=== PATIENT | male | born 1935 | race Caucasian/White ===

== ENCOUNTER 2018-12-22 11:53 | Emergency (ER) | payer MEDICARE, OTHER ==
[~2018-12-22] VITALS: Ht 177.8 cm; Wt 81.0 kg
[~2018-12-22 11:53] MED LIST: AMIO200T40 PO; ASPI-41 PO; ATOR10TA PO; DOCU100C40 PO; HUM7525 SQ; HYDR-3972 PO; METO25TA6 PO; SITA1TAB6 PO
[2018-12-22] MEDS ORDERED: HYDROcodone/acetaminophen 5mg/325mg tablet PO ONE (12:45)
[2018-12-22 12:51] VITALS: BP 132/76
== END 2018-12-22 13:13 | disposition home or self-care (01) ==
LOC: ER 11:53
DX: M13.862 Other specified arthritis, left knee (principal); M25.462 Effusion, left knee; M25.562 Pain in left knee; E11.9 Type 2 diabetes mellitus without complications; Z79.4 Long term (current) use of insulin; Z79.82 Long term (current) use of aspirin; Z79.899 Other long term (current) drug therapy
CPT/HCPCS: 73564; 99284

== ENCOUNTER 2018-12-24 12:05 | Emergency (ER) | payer MEDICARE, OTHER ==
[~2018-12-24] VITALS: Ht 177.8 cm; Wt 81.0 kg
[2018-12-24 13:17] VITALS: BP 144/88
== END 2018-12-24 13:19 | disposition home or self-care (01) ==
LOC: ER 12:06
DX: M25.562 Pain in left knee (principal); E11.9 Type 2 diabetes mellitus without complications; Z79.82 Long term (current) use of aspirin; Z79.4 Long term (current) use of insulin; Z79.899 Other long term (current) drug therapy
CPT/HCPCS: 99284

== ENCOUNTER 2021-12-28 13:22 | Inpatient (IN) | payer MEDICARE ==
[~2021-12-28] VITALS: Ht 172.7 cm; Wt 95.1 kg
[~2021-12-28 13:22] MED LIST changes: -AMIO200T40 PO; +APIX5TAB3 PO; -ASPI-41 PO; -ATOR10TA PO; +ATOR40TA72 PO; -DOCU100C40 PO; -HYDR-3972 PO; -METO25TA6 PO; -SITA1TAB6 PO
[2021-12-28 14:13] LABS: BASOPHILS % (AUTO) 0.2 % (0-1); EOSINOPHILS % (AUTO) 0.4 % (0-6); HEMATOCRIT 45.4 % (42.0-52.0); HEMOGLOBIN 15.2 g/dl (14.0-17.9); LYMPHOCYTES # (AUTO) 1.2 X10'3 (1.1-4.8); LYMPHOCYTES % (AUTO) 16.2 % (21-51); MEAN CORPUSCULAR HEMOGLOBIN 27.9 PG (27.0-31.0); MEAN CORPUSCULAR HGB CONC 33.4 g/dL (33.0-36.5); MEAN CORPUSCULAR VOLUME 83.5 FL (78-98); MEAN PLATELET VOLUME 7.8 FL (7.4-10.4); MONOCYTES # (AUTO) 0.8 X10'3 (0-0.9); MONOCYTES % (AUTO) 10.7 % (2-12); NEUTROPHILS # (AUTO) 5.2 X10'3 (1.8-7.7); NEUTROPHILS % (AUTO) 72.5 % (42-75); PLATELET COUNT 149 X10'3 (140-440); RED BLOOD COUNT 5.44 X10'6 (4.70-6.10); WHITE BLOOD COUNT 7.2 X10'3 (4.5-11.0)
[2021-12-28 14:28] LABS: ALANINE AMINOTRANSFERASE 92 U/L (12-78); ALBUMIN 2.8 G/DL (3.4-5.0); ALBUMIN/GLOBULIN RATIO 0.8 (1.1-1.5); ALKALINE PHOSPHATASE 49 IU/L (46-116); ANION GAP 9 (8-16); ASPARTATE AMINO TRANSFERASE 272 U/L (10-37); BILIRUBIN,TOTAL 0.6 MG/DL (0.1-1.0); BLOOD UREA NITROGEN 31 MG/DL (7-18); BUN/CREATININE RATIO 22.8 (5.4-32.0); CALCIUM 8.1 MG/DL (8.5-10.1); CHLORIDE 106 MMOL/L (99-107); CREATININE 1.36 MG/DL (0.60-1.10); GLUCOSE 64 MG/DL (70-104); POTASSIUM 3.8 MMOL/L (3.5-5.1); SODIUM 139 MMOL/L (135-145); TOTAL PROTEIN 6.5 G/DL (6.4-8.2); eGFR 50 ML/MIN
[2021-12-28] MEDS ORDERED: normal saline 1000ML IV soln IVB ONE ×2 (15:45→17:55)
[2021-12-28 15:56] LABS: CLARITY,URINE SLIGHTLY CLOUDY (Clear); COLOR,URINE YELLOW (Yellow); GLUCOSE, URINE NEGATIVE (Neg); KETONES,URINE NEGATIVE (Neg); LEUKOCYTE ESTERASE ,URINE NEGATIVE (Neg); NITRITES, URINE NEGATIVE (Neg); OCCULT BLOOD,URINE LARGE (Neg); PROTEIN,URINE 30 mg/dl (Neg); UROBILINOGEN,URINE 0.2 E.U/dL (0.2-1.0)
[2021-12-28 16:01] LABS: UA COLLECTION TYPE VOIDED
[2021-12-28 16:07] LABS: BACTERIA,URINE NONE SEEN /HPF (Neg); MUCUS STRANDS FEW /LPF (Neg); RBC,URINE 0-2 /HPF (0-2); SQUAMOUS EPITHELIAL CELL,UR NONE SEEN /LPF (FEW); WBC,URINE NONE SEEN /HPF (0-4)
[2021-12-28 16:08] LABS: FINE GRANULAR CAST 0-3 /LPF (NEGATIVE)
[2021-12-28 17:26] LABS: CREATINE KINASE 12498 U/L (39-308)
[2021-12-28] MEDS ORDERED: MESSAGE TO PHARMACY PO ONE (18:05)
[2021-12-28] MEDS ORDERED: POTASSIUM BICARB 20meq eff tab 20 MEQ TABLET.EFF PO PRN ×2 (18:05)
[2021-12-28] MEDS ORDERED: HYDROcodone/acetaminophen 10/325mg tab PO PRN (18:05)
[2021-12-28] MEDS ORDERED: ondansetron/PF 4mg/2ml inj IV PRN (18:05)
[2021-12-28] MEDS ORDERED: glucagon, human recombinant 1mg kit SUBCUT PRN (18:05)
[2021-12-28] MEDS ORDERED: HYDROcodone/acetaminophen 5mg/325mg tablet PO PRN (18:05)
[2021-12-28] MEDS ORDERED: DEXTROSE 15 GM of carb/4 tabs (each vial/BOTTLE has 4 tablets) PO PRN ×2 (18:05)
[2021-12-28] MEDS ORDERED: acetaminophen 650mg rectal suppository RC PRN (18:05)
[2021-12-28] MEDS ORDERED: magnesium Cl slow-release 64mg tablet PO PRN (18:05)
[2021-12-28] MEDS ORDERED: acetaminophen 325mg tablet PO PRN ×2 (18:05)
[2021-12-28] MEDS ORDERED: dextrose 50%-water 50ml dispensing syringe IV PRN ×2 (18:05)
[2021-12-28] MEDS ORDERED: magnesium 4gm in 100ml NS 100 ML IV PRN (18:05)
[2021-12-28] MEDS ORDERED: magnesium 2GM in 50ml NS 50 ML IV PRN (18:05)
[2021-12-28] MEDS ORDERED: magnesium hydroxide 30ml (MOM) UD suspension PO PRN (18:05)
[2021-12-28] MEDS ORDERED: ondansetron 4mg rapidly disintigrating tab PO PRN (18:05)
[2021-12-28] MEDS ORDERED: bisacodyl 10mg suppository rectal RC PRN (18:05)
[2021-12-28] MEDS ORDERED: potassium CL 10mEq/100ml bag 100 ML IV PRN (18:05)
[2021-12-28] MEDS ORDERED: mag hydrox/Alum hydrox/simeth 30ml oral suspension PO PRN (18:05)
--- NOTE | 2021-12-28 18:20 | NUR ---
Given a turkey sandwich and apple juice.
[2021-12-28] MEDS: K and/or MAG REPLACEMENT MC SCH (18:40)
[2021-12-28 18:42] LABS: POTASSIUM 3.7 MMOL/L (3.5-5.1)
[2021-12-28 18:49] LABS: HEMOGLOBIN A1C 7.9 % (4.5-6.2)
--- NOTE | 2021-12-28 19:00 | NUR ---
Upon reviewing lab results of patient during initial assessment, recieving nurse was unaware of blood sugar reading that was taken by reporting nurse. Patient just given dinner tray, encouraged to eat entirety of meal and drink both juices. Will retake blood sugar to evaluate effectiveness and follow up with hospitalist. Patient is asymptomatic and not exhibiting s/sx of hypoglycemia.
[2021-12-28] MEDS: insulin glargine (Lantus) pen - multi-dose SQ SCH (19:38)
[2021-12-28] MEDS: heparin, porcine 5000 units/ml vial SQ SCH (19:56)
[2021-12-28] MEDS: docusate sod 100mg capsule PO SCH (19:57)
[2021-12-28] MEDS: normal saline 1000ml 1,000 ML IV SCH (20:27)
[2021-12-28] MEDS ORDERED: temazepam 15mg capsule PO PRN (21:00)
--- NOTE | 2021-12-29 00:19 | NUR ---
Patient in room ED 11. I have received report from vance and had the opportunity to ask questions and assume patient care.
[2021-12-29 01:00] VITALS: BP 156/78
[2021-12-29] MEDS: normal saline 1000ml 1,000 ML IV SCH ×3 (02:32→19:12)
[2021-12-29 06:00] VITALS: BP 149/71
--- NOTE | 2021-12-29 06:36 | NUR ---
Patient in room PCU 3023. I have received report from Jelly HILLIARD and had the opportunity to ask questions and assume patient care.
--- NOTE | 2021-12-29 06:44 | NUR ---
Problems reprioritized. Patient report given, questions answered & plan of care reviewed with Linda HILLIARD.
[2021-12-29 06:51] LABS: BASOPHILS % (AUTO) 0.3 % (0-1); EOSINOPHILS % (AUTO) 0.9 % (0-6); HEMATOCRIT 38.7 % (42.0-52.0); LYMPHOCYTES % (AUTO) 21.9 % (21-51); MEAN CORPUSCULAR HGB CONC 33.7 g/dL (33.0-36.5); MEAN CORPUSCULAR VOLUME 83.1 FL (78-98); MONOCYTES # (AUTO) 0.5 X10'3 (0-0.9); MONOCYTES % (AUTO) 11.1 % (2-12); NEUTROPHILS % (AUTO) 65.8 % (42-75); PLATELET COUNT 130 X10'3 (140-440); RED BLOOD COUNT 4.65 X10'6 (4.70-6.10); RED CELL DISTRIBUTION WIDTH 14.7 % (11.5-14.5); WHITE BLOOD COUNT 4.5 X10'3 (4.5-11.0)
[2021-12-29 07:27] LABS: ALANINE AMINOTRANSFERASE 77 U/L (12-78); ALBUMIN 2.3 G/DL (3.4-5.0); ALBUMIN/GLOBULIN RATIO 0.7 (1.1-1.5); ALKALINE PHOSPHATASE 42 IU/L (46-116); ANION GAP 8 (8-16); ASPARTATE AMINO TRANSFERASE 159 U/L (10-37); BILIRUBIN,TOTAL 0.4 MG/DL (0.1-1.0); BLOOD UREA NITROGEN 19 MG/DL (7-18); BUN/CREATININE RATIO 16.1 (5.4-32.0); CALCIUM 7.1 MG/DL (8.5-10.1); CHLORIDE 111 MMOL/L (99-107); CREATININE 1.18 MG/DL (0.60-1.10); GLUCOSE 99 MG/DL (70-104); MAGNESIUM 1.8 MG/DL (1.5-2.4); POTASSIUM 3.8 MMOL/L (3.5-5.1); SODIUM 140 MMOL/L (135-145); TOTAL CARBON DIOXIDE 21.5 MMOL/L (24-32); TOTAL PROTEIN 5.4 G/DL (6.4-8.2); eGFR 59 ML/MIN
[2021-12-29] MEDS: docusate sod 100mg capsule PO SCH ×2 (08:00→21:16)
[2021-12-29 08:02] LABS: CREATINE KINASE 7542 U/L (39-308)
[2021-12-29] MEDS: K and/or MAG REPLACEMENT MC SCH ×2 (08:15→20:00)
[2021-12-29 11:00] VITALS: BP 149/71
--- NOTE | 2021-12-29 12:35 | NUR ---
DM/malnutrition consults: Per malnutrition risk screen with RN pt unsure of wt loss though reports decreased appetite. Per EMR pt with scaled wt h/o 81 kg 12/24/18 and 90 kg 12/24/21; current scaled wt is 91 kg. No apparent wt loss. Pending documentation of PO intake on CHO controlled diet. Pt with no documented decrease in muscle strength or edema and per H&P pt appears well developed well nourished. Pt currently lacks a minimum of two criteria for malnutrition. Per DM consult pt with recent low BS and needs education re diabetes/insulin management. Noted pt with BS range 49-187 mg/dL with multiple episodes of hypoglycemia this admit. Pt provided with DM education with RD contact information at recent admit 12/24 with A1c 7.9% which is consistent with current A1c, however RD recommends no restrictions with diet given geriatric age, A1c, and BS trends. RD unable to provide education regarding insulin management as it's out of RD scope of practice, will defer medication education to appropriate medical staff. Multiple unsuccessful attempts at reaching bedside RN, message left with another RN regarding RD's inability to provide medication education and recommendation for diet liberalization to regular given episodes of hypoglycemia. Will continue to follow. Addendum: 12/29/21 at [address] Amended: Links added.
[2021-12-29 15:00] VITALS: BP 136/76
[2021-12-29] MEDS: heparin, porcine 5000 units/ml vial SQ SCH (15:45)
--- NOTE | 2021-12-29 16:09 | NUR ---
Pt. lived alone prior to this admission. He took medications just prior to leaving the house on the way to the hospital. Home Medication Reconciliation is not reliable.
[2021-12-29 18:00] VITALS: BP 104/64
--- NOTE | 2021-12-29 18:30 | NUR ---
Patient in room PCU 3023. I have received report from Linda HILLIARD and had the opportunity to ask questions and assume patient care.
[2021-12-29] MEDS: insulin glargine (Lantus) pen - multi-dose SQ SCH (21:00)
[2021-12-29] MEDS: apixaban 5mg tablet PO SCH (21:16)
[2021-12-29] MEDS: temazepam 15mg capsule PO SCH (21:16)
[2021-12-29] MEDS: benzocaine/menthol oral lozeng 1 EACH BOX MM PRN (21:17)
[2021-12-29] MEDS: cetirizine 10mg tablet PO SCH (21:17)
[2021-12-29 22:00] VITALS: BP 129/64
[2021-12-29] MEDS ORDERED: APIX2.5T PO (22:09)
[2021-12-29] MEDS ORDERED: GABA-530 PO (22:09)
[2021-12-29] MEDS ORDERED: DIGO250T2 PO (22:09)
[2021-12-30] MEDS: benzocaine/menthol oral lozeng 1 EACH BOX MM PRN ×2 (01:07→21:15)
[2021-12-30 02:00] VITALS: BP 142/65
[2021-12-30] MEDS: normal saline 1000ml 1,000 ML IV SCH ×3 (03:48→21:19)
[2021-12-30 06:00] VITALS: BP 123/71
--- NOTE | 2021-12-30 06:16 | NUR ---
Problems reprioritized. Patient report given, questions answered & plan of care reviewed with
--- NOTE | 2021-12-30 06:20 | NUR ---
Patient in room PCU 3023. I have received report from Jelly HILLIARD and had the opportunity to ask questions and assume patient care.
[2021-12-30 06:54] LABS: BASOPHILS % (AUTO) 0.3 % (0-1); EOSINOPHILS # (AUTO) 0.1 X10'3 (0-0.9); EOSINOPHILS % (AUTO) 1.3 % (0-6); HEMATOCRIT 38.6 % (42.0-52.0); LYMPHOCYTES % (AUTO) 21.2 % (21-51); MEAN CORPUSCULAR HEMOGLOBIN 28.1 PG (27.0-31.0); MEAN CORPUSCULAR HGB CONC 33.7 g/dL (33.0-36.5); MEAN CORPUSCULAR VOLUME 83.3 FL (78-98); MONOCYTES # (AUTO) 0.5 X10'3 (0-0.9); MONOCYTES % (AUTO) 11.1 % (2-12); NEUTROPHILS # (AUTO) 3.2 X10'3 (1.8-7.7); NEUTROPHILS % (AUTO) 66.1 % (42-75); PLATELET COUNT 151 X10'3 (140-440); RED BLOOD COUNT 4.64 X10'6 (4.70-6.10); RED CELL DISTRIBUTION WIDTH 14.8 % (11.5-14.5); WHITE BLOOD COUNT 4.8 X10'3 (4.5-11.0)
[2021-12-30 07:12] LABS: ALANINE AMINOTRANSFERASE 74 U/L (12-78); ALBUMIN 2.4 G/DL (3.4-5.0); ALBUMIN/GLOBULIN RATIO 0.7 (1.1-1.5); ALKALINE PHOSPHATASE 41 IU/L (46-116); ANION GAP 11 (8-16); ASPARTATE AMINO TRANSFERASE 126 U/L (10-37); BILIRUBIN,TOTAL 0.6 MG/DL (0.1-1.0); BLOOD UREA NITROGEN 15 MG/DL (7-18); BUN/CREATININE RATIO 12.8 (5.4-32.0); CALCIUM 7.3 MG/DL (8.5-10.1); CHLORIDE 107 MMOL/L (99-107); CREATININE 1.17 MG/DL (0.60-1.10); GLUCOSE 122 MG/DL (70-104); MAGNESIUM 1.6 MG/DL (1.5-2.4); POTASSIUM 3.8 MMOL/L (3.5-5.1); SODIUM 140 MMOL/L (135-145); TOTAL CARBON DIOXIDE 22.4 MMOL/L (24-32); TOTAL PROTEIN 5.9 G/DL (6.4-8.2); eGFR 59 ML/MIN
[2021-12-30 07:19] LABS: CREATINE KINASE 5033 U/L (39-308)
[2021-12-30] MEDS: K and/or MAG REPLACEMENT MC SCH ×2 (07:24→20:00)
[2021-12-30] MEDS: docusate sod 100mg capsule PO SCH ×2 (08:00→20:52)
[2021-12-30 11:00] VITALS: BP 136/81
[2021-12-30] MEDS: apixaban 5mg tablet PO SCH ×2 (11:39→20:53)
--- NOTE | 2021-12-30 12:59 | NUR ---
Written diabetic survival skills guide brought to bedside.
--- NOTE | 2021-12-30 14:30 | NUR ---
LAB CALLED-PATIENT POSITIVE FOR MRSA IN NARES, PRIMARY RN AWARE AND NOTIFYING MD. JESUS ALBERTO HILLIARD
[2021-12-30 15:00] VITALS: BP 145/54
--- NOTE | 2021-12-30 15:09 | NUR ---
Case Management is requested for home health needs.
[2021-12-30 18:00] VITALS: BP 132/63
--- NOTE | 2021-12-30 18:44 | NUR ---
Problems reprioritized. Patient report given, questions answered & plan of care reviewed with Jaylene HILLIARD .
[2021-12-30] MEDS ORDERED: apixaban 2.5mg tablet PO SCH (20:00)
[2021-12-30] MEDS: cetirizine 10mg tablet PO SCH (20:52)
[2021-12-30] MEDS: temazepam 15mg capsule PO SCH (20:52)
--- NOTE | 2021-12-30 21:31 | NUR ---
Here for fall at home. He is positive for MRSA nares. He's wheezing and has a very productive cough. Can I order a DUONEB tx for him? Any abx? Miriam [phone]
[2021-12-30] MEDS ORDERED: ipratropium/albuterol 3ml nebule NEB PRN (21:35)
--- NOTE | 2021-12-30 21:36 | NUR ---
Paged RT. Can I have a duoneb treatment for 23B. He is wheezy. Thanks
[2021-12-30] MEDS: insulin glargine (Lantus) pen - multi-dose SQ SCH (22:20)
[2021-12-30 23:49] VITALS: BP 142/75
--- NOTE | 2021-12-31 00:37 | NUR ---
Patient in room PCU 3023. I have received report from Linda and had the opportunity to ask questions and assume patient care.
[2021-12-31 02:00] VITALS: BP 148/63
[2021-12-31] MEDS ORDERED: diltiazem-D5W 125mg/125ml 125 ML IV SCH (05:15)
--- NOTE | 2021-12-31 05:19 | NUR ---
Paged Dr. Lemons. Patient in A-fib for 30 mins. Order given for Kenia mohr. Pharmacy will call when it is ready for pickup.
[2021-12-31 06:00] VITALS: BP 146/80
[2021-12-31 06:58] LABS: BASOPHILS % (AUTO) 0.2 % (0-1); EOSINOPHILS # (AUTO) 0.1 X10'3 (0-0.9); EOSINOPHILS % (AUTO) 1.3 % (0-6); HEMOGLOBIN 13.1 g/dl (14.0-17.9); LYMPHOCYTES # (AUTO) 0.9 X10'3 (1.1-4.8); LYMPHOCYTES % (AUTO) 16.7 % (21-51); MEAN CORPUSCULAR HEMOGLOBIN 27.9 PG (27.0-31.0); MEAN CORPUSCULAR HGB CONC 33.7 g/dL (33.0-36.5); MEAN CORPUSCULAR VOLUME 82.8 FL (78-98); MEAN PLATELET VOLUME 7.7 FL (7.4-10.4); MONOCYTES # (AUTO) 0.6 X10'3 (0-0.9); NEUTROPHILS % (AUTO) 70.8 % (42-75); PLATELET COUNT 171 X10'3 (140-440); RED BLOOD COUNT 4.71 X10'6 (4.70-6.10); RED CELL DISTRIBUTION WIDTH 14.6 % (11.5-14.5); WHITE BLOOD COUNT 5.6 X10'3 (4.5-11.0)
--- NOTE | 2021-12-31 07:11 | NUR ---
Page to . Page Sent promotional table spacer PAGER ID: [phone] MESSAGE: Dr. Toledo pt in room 3023B Casey Grey has cardizem gtt ordered that wasn't hung by warehouse supervisor 3rd shift; Pt. has been in NSR for over an hour per local telephone operator; has digoxin 250mcg ordered. You want me to hold off on cardizem gtt for now? Kae PCU (239 character message out of a maximum of 240)
--- NOTE | 2021-12-31 07:12 | NUR ---
Telephone order Telephone order from Dr. Toledo to discontinue 2.5mg order of eliquis and also discontinue cardizem gtt due to patient being in NSR will continue to monitor. Thanks, Kae U
[2021-12-31 07:55] LABS: ALANINE AMINOTRANSFERASE 74 U/L (12-78); ALBUMIN 2.2 G/DL (3.4-5.0); ALBUMIN/GLOBULIN RATIO 0.6 (1.1-1.5); ALKALINE PHOSPHATASE 44 IU/L (46-116); ANION GAP 10 (8-16); ASPARTATE AMINO TRANSFERASE 96 U/L (10-37); BILIRUBIN,TOTAL 0.7 MG/DL (0.1-1.0); BLOOD UREA NITROGEN 11 MG/DL (7-18); BUN/CREATININE RATIO 9.4 (5.4-32.0); CALCIUM 7.5 MG/DL (8.5-10.1); CHLORIDE 110 MMOL/L (99-107); CREATINE KINASE 2753 U/L (39-308); CREATININE 1.17 MG/DL (0.60-1.10); GLUCOSE 160 MG/DL (70-104); MAGNESIUM 1.8 MG/DL (1.5-2.4); POTASSIUM 4.3 MMOL/L (3.5-5.1); SODIUM 140 MMOL/L (135-145); TOTAL CARBON DIOXIDE 19.7 MMOL/L (24-32); TOTAL PROTEIN 5.9 G/DL (6.4-8.2); eGFR 59 ML/MIN
[2021-12-31] MEDS: K and/or MAG REPLACEMENT MC SCH ×2 (08:00→20:59)
[2021-12-31] MEDS: insulin Lispro (HumaLOG) vial - multi-dose SQ SCH ×2 (08:52→13:47)
[2021-12-31] MEDS: cetirizine 10mg tablet PO SCH (08:52)
[2021-12-31] MEDS: gabapentin 100mg capsule PO SCH (08:53)
[2021-12-31] MEDS: apixaban 5mg tablet PO SCH ×2 (08:53→22:30)
[2021-12-31] MEDS: docusate sod 100mg capsule PO SCH ×2 (08:53→21:00)
[2021-12-31] MEDS: atorvastatin 20mg tablet PO SCH (08:53)
[2021-12-31] MEDS: digoxin 250mcg (0.25mg) tablet PO SCH (08:53)
[2021-12-31] MEDS: normal saline 1000ml 1,000 ML IV SCH ×3 (08:54→21:09)
[2021-12-31 15:00] VITALS: BP 117/64
[2021-12-31 18:00] VITALS: BP 137/74
--- NOTE | 2021-12-31 18:15 | NUR ---
Patient in room PCU 3023. I have received report from Chasity and had the opportunity to ask questions and assume patient care.
--- NOTE | 2021-12-31 18:46 | NUR ---
Problems reprioritized. Patient report given, questions answered & plan of care reviewed with Jaylene HILLIARD.
[2021-12-31] MEDS: temazepam 15mg capsule PO SCH (20:21)
[2021-12-31] MEDS: diltiazem 30mg tablet PO SCH (20:22)
[2021-12-31] MEDS: benzocaine/menthol oral lozeng 1 EACH BOX MM PRN (20:24)
[2021-12-31] MEDS: insulin glargine (Lantus) pen - multi-dose SQ SCH (21:04)
[2021-12-31 22:00] VITALS: BP 100/54
[2022-01-01] MEDS ORDERED: Melatonin 3mg tablet PO SCH ×2 (00:50→21:00)
[2022-01-01 02:00] VITALS: BP 100/82
[2022-01-01] MEDS: diltiazem 30mg tablet PO SCH ×3 (02:06→14:15)
[2022-01-01] MEDS: normal saline 1000ml 1,000 ML IV SCH ×2 (05:01→11:17)
[2022-01-01 05:39] LABS: BASOPHILS % (AUTO) 0.5 % (0-1); EOSINOPHILS # (AUTO) 0.1 X10'3 (0-0.9); HEMATOCRIT 35.4 % (42.0-52.0); LYMPHOCYTES % (AUTO) 16.8 % (21-51); MEAN CORPUSCULAR HEMOGLOBIN 28.1 PG (27.0-31.0); MEAN CORPUSCULAR VOLUME 82.8 FL (78-98); MEAN PLATELET VOLUME 7.3 FL (7.4-10.4); MONOCYTES # (AUTO) 0.7 X10'3 (0-0.9); MONOCYTES % (AUTO) 11.7 % (2-12); NEUTROPHILS # (AUTO) 4.2 X10'3 (1.8-7.7); PLATELET COUNT 195 X10'3 (140-440); RED BLOOD COUNT 4.28 X10'6 (4.70-6.10); RED CELL DISTRIBUTION WIDTH 14.8 % (11.5-14.5)
[2022-01-01 06:00] VITALS: BP 129/67
--- NOTE | 2022-01-01 06:00 | NUR ---
Patient in room PCU 3023. I have received report from ARMINDA Mariee and had the opportunity to ask questions and assume patient care.
[2022-01-01 06:12] LABS: ALANINE AMINOTRANSFERASE 78 U/L (12-78); ALBUMIN/GLOBULIN RATIO 0.6 (1.1-1.5); ALKALINE PHOSPHATASE 41 IU/L (46-116); ANION GAP 7 (8-16); ASPARTATE AMINO TRANSFERASE 67 U/L (10-37); BILIRUBIN,TOTAL 0.6 MG/DL (0.1-1.0); BLOOD UREA NITROGEN 14 MG/DL (7-18); BUN/CREATININE RATIO 11.5 (5.4-32.0); CALCIUM 7.2 MG/DL (8.5-10.1); CHLORIDE 110 MMOL/L (99-107); CREATININE 1.22 MG/DL (0.60-1.10); GLUCOSE 181 MG/DL (70-104); MAGNESIUM 1.5 MG/DL (1.5-2.4); SODIUM 140 MMOL/L (135-145); TOTAL CARBON DIOXIDE 22.8 MMOL/L (24-32); TOTAL PROTEIN 5.3 G/DL (6.4-8.2); eGFR 56 ML/MIN
--- NOTE | 2022-01-01 06:15 | NUR ---
Problems reprioritized. Patient report given, questions answered & plan of care reviewed with ARMINDA Pal.
[2022-01-01 06:21] LABS: CREATINE KINASE 1506 U/L (39-308)
[2022-01-01] MEDS: cetirizine 10mg tablet PO SCH (07:26)
[2022-01-01] MEDS: atorvastatin 20mg tablet PO SCH (07:26)
[2022-01-01] MEDS: apixaban 5mg tablet PO SCH (07:29)
--- NOTE | 2022-01-01 07:30 | NUR ---
Computer scanner would not scan barcodes for Eliquis 5mg, Gabapentin 100 mg, and Docusate sodium 100 mg, meds. verified by ARMINDA Sampson and administered to patient.
[2022-01-01] MEDS: digoxin 250mcg (0.25mg) tablet PO SCH (07:31)
[2022-01-01] MEDS: gabapentin 100mg capsule PO SCH (07:31)
[2022-01-01] MEDS: K and/or MAG REPLACEMENT MC SCH (08:00)
[2022-01-01] MEDS: docusate sod 100mg capsule PO SCH (08:11)
[2022-01-01] MEDS ORDERED: DILT-88 PO (08:37)
[2022-01-01] MEDS ORDERED: INSU300I SQ (08:37)
[2022-01-01] MEDS ORDERED: CETI10TA14 PO (08:37)
[2022-01-01] MEDS: insulin Lispro (HumaLOG) vial - multi-dose SQ SCH (09:53)
[2022-01-01 11:00] VITALS: BP 126/55
--- NOTE | 2022-01-01 15:38 | NUR ---
Discharge Note Pt. received discharge instructions with no further questions; Pt. IV removed with catheter intact; Pt. tele box & BP cleaned and returned. Medications E-faxed to medications; [facility] was [facility] further questions at time of [facility]
== END 2022-01-01 15:38 | disposition home health service (06) | DRG 638 ==
LOC: ER 13:22 → ED HOLD 18:07 → PCU 3S 12-29 00:35
PROVIDERS: ADMIT Family Medicine; ATTEND Family Medicine
DX: E11.649 Type 2 diabetes mellitus with hypoglycemia without coma (principal); M62.82 Rhabdomyolysis; N17.9 Acute kidney failure, unspecified; E11.22 Type 2 diabetes mellitus with diabetic chronic kidney disease; N18.30 Chronic kidney disease, stage 3 unspecified; G47.00 Insomnia, unspecified; I25.10 Atherosclerotic heart disease of native coronary artery without angina pectoris; J30.2 Other seasonal allergic rhinitis; R74.01 Elevation of levels of liver transaminase levels; T38.3X5A Adverse effect of insulin and oral hypoglycemic [antidiabetic] drugs, initial encounter; I48.0 Paroxysmal atrial fibrillation; Z79.01 Long term (current) use of anticoagulants; Z79.4 Long term (current) use of insulin; Z86.73 Personal history of transient ischemic attack (TIA), and cerebral infarction without residual deficits; Z95.1 Presence of aortocoronary bypass graft; Z95.5 Presence of coronary angioplasty implant and graft; Z97.4 Presence of external hearing-aid; Y92.89 Other specified places as the place of occurrence of the external cause
CPT/HCPCS: 36415; 70551; 71045; 80053; 81001; 82550; 82948; 83036; 83735; 83880; 84132; 84145; 84484; 85025; 87081; 93005; 93880; 94760; 96360; 97116; 97162; 97530; 99285; G0378; J1644; J1815; J7030

== ENCOUNTER 2024-05-13 21:00 | Emergency (ER) | payer MEDICARE, BC ==
[~2024-05-13] VITALS: Ht 177.8 cm; Wt 95.9 kg
[~2024-05-13 21:00] MED LIST changes: +APIX2.5T PO; -APIX5TAB3 PO; +CETI10TA14 PO; +DIGO250T2 PO; +DILT-88 PO; +GABA-530 PO; -HUM7525 SQ; +INSU300I SQ
[2024-05-13 21:07] VITALS: TEMP 98.9
[2024-05-13 22:59] LABS: BASOPHILS % (AUTO) 0.3 % (0-1); EOSINOPHILS # (AUTO) 0.3 X10'3 (0-0.9); EOSINOPHILS % (AUTO) 4.3 % (0-6); HEMATOCRIT 41.1 % (42.0-52.0); HEMOGLOBIN 13.8 g/dl (14.0-17.9); LYMPHOCYTES # (AUTO) 1.2 X10'3 (1.1-4.8); MEAN CORPUSCULAR HEMOGLOBIN 28.5 PG (27.0-31.0); MEAN CORPUSCULAR HGB CONC 33.4 g/dL (33.0-36.5); MEAN CORPUSCULAR VOLUME 85.2 FL (78-98); MEAN PLATELET VOLUME 7.8 FL (7.4-10.4); MONOCYTES # (AUTO) 0.8 X10'3 (0-0.9); MONOCYTES % (AUTO) 10.9 % (2-12); NEUTROPHILS # (AUTO) 5.3 X10'3 (1.8-7.7); NEUTROPHILS % (AUTO) 68.5 % (42-75); PLATELET COUNT 175 X10'3 (140-440); RED BLOOD COUNT 4.83 X10'6 (4.70-6.10); RED CELL DISTRIBUTION WIDTH 14.8 % (11.5-14.5); WHITE BLOOD COUNT 7.7 X10'3 (4.5-11.0)
[2024-05-13 23:06] LABS: ALANINE AMINOTRANSFERASE 25 U/L (12-78); ALBUMIN/GLOBULIN RATIO 0.7 (1.1-1.5); ALKALINE PHOSPHATASE 73 IU/L (46-116); ANION GAP 7 (8-16); ASPARTATE AMINO TRANSFERASE 15 U/L (10-37); BILIRUBIN,TOTAL 0.6 MG/DL (0.1-1.0); BLOOD UREA NITROGEN 31 MG/DL (7-18); CALCIUM 8.7 MG/DL (8.5-10.1); CHLORIDE 102 MMOL/L (99-107); CREATININE 2.22 MG/DL (0.60-1.10); GLUCOSE 318 MG/DL (70-104); POTASSIUM 4.6 MMOL/L (3.5-5.1); SODIUM 134 MMOL/L (135-145); TOTAL CARBON DIOXIDE 24.6 MMOL/L (24-32); TOTAL PROTEIN 7.1 G/DL (6.4-8.2); eCRCL 24 ML/MIN; eGFR 28 ML/MIN
[2024-05-13] MEDS: normal saline 1000ml 1,000 ML IV ONE (23:46)
[2024-05-14] MEDS: normal saline 1000ml 1,000 ML IV ONE (00:49)
[2024-05-14 01:59] LABS: BILIRUBIN,URINE NEGATIVE (Neg); CLARITY,URINE SLIGHTLY CLOUDY (Clear); COLOR,URINE YELLOW (Yellow); GLUCOSE, URINE >=1000 mg/dl (Neg); KETONES,URINE NEGATIVE (Neg); LEUKOCYTE ESTERASE ,URINE SMALL (Neg); NITRITES, URINE NEGATIVE (Neg); OCCULT BLOOD,URINE SMALL (Neg); PROTEIN,URINE 30 mg/dl (Neg); UROBILINOGEN,URINE 0.2 E.U/dL (0.2-1.0)
[2024-05-14 02:01] LABS: UA COLLECTION TYPE CLN CATCH MIDSTREAM
[2024-05-14 02:06] LABS: BACTERIA,URINE FEW /HPF (Neg); RBC,URINE 0-2 /HPF (0-2); SQUAMOUS EPITHELIAL CELL,UR FEW /LPF (FEW)
[2024-05-14] MEDS ORDERED: CEPH-585 PO (02:29)
[2024-05-14] MEDS: cephalexin 250mg capsule PO ONE (02:42)
[2024-05-14 02:54] VITALS: BP 149/82; PULSE 88; RESP 18; O2SAT 97
== END 2024-05-14 02:57 | disposition home or self-care (01) ==
LOC: ER 21:01
DX: E11.65 Type 2 diabetes mellitus with hyperglycemia (principal); N39.0 Urinary tract infection, site not specified; I25.10 Atherosclerotic heart disease of native coronary artery without angina pectoris; Z79.899 Other long term (current) drug therapy; Z79.4 Long term (current) use of insulin
CPT/HCPCS: 36415; 71045; 80053; 81001; 82948; 85025; 87088; 96360; 99285; J7030